=== PATIENT | female | born 1930 | race Caucasian/White ===

== ENCOUNTER → 2017-11-15 | Outpatient (CLI) | payer MEDICARE ==
[~2017-11-15] MED LIST: ASPI1TAB57 PO; ASPI81 PO; KETO1SOL3 LEFT EYE; LORA0.5T PO; OCUF0.3D OS; OMEG100010 PO; REST0.05 EACH EYE; TAB-TAB PO
== END ==
LOC: CPRE 11:41
PROVIDERS: ATTEND Orthopaedic Surgery
DX: M16.11 Unilateral primary osteoarthritis, right hip (principal)